=== PATIENT | male | born 1985 | race Caucasian/White ===

== ENCOUNTER 2023-04-26 21:51 | Emergency (ER) | payer BC ==
[~2023-04-26] VITALS: Ht 177.8 cm; Wt 81.6 kg
[2023-04-26 21:55] VITALS: BP 170/90; PULSE 90; RESP 16; TEMP 97.7; O2SAT 98
[2023-04-26] MEDS ORDERED: DEXAMETHASONE 10 MG/ML VIAL PO ONE (23:45)
[2023-04-26] MEDS ORDERED: CLINDAMYCIN 150 MG CAP PO ONE (23:45)
[2023-04-26] MEDS ORDERED: CLIN300C2 PO (23:47)
== END 2023-04-27 00:11 | disposition home or self-care (01) ==
LOC: MED 21:51
DX: J36 Peritonsillar abscess (principal); Z79.2 Long term (current) use of antibiotics; Z88.0 Allergy status to penicillin
CPT/HCPCS: 87081; 99283; J1100